=== PATIENT | female | born 1985 | race Caucasian/White ===

== ENCOUNTER 2017-05-08 11:51 | Emergency (ER) | payer SELFPAY ==
[~2017-05-08] VITALS: Ht 154.9 cm; Wt 69.9 kg
[~2017-05-08 11:51] MED LIST: DICLOFENAC SODI75 MG PO; LYRICA50 MG PO; NEURONTIN; TRAMADOL HCL50 MG PO; ULTRAM50 MG PO
[2017-05-08] MEDS ORDERED: PEN-VEE K,VEET500 MG PO (14:11)
[2017-05-08 14:21] VITALS: BP 131/66
== END 2017-05-08 14:22 | disposition home or self-care (01) ==
LOC: EME 11:51 → RME 11:51
DX: K04.7 Periapical abscess without sinus (principal); F17.200 Nicotine dependence, unspecified, uncomplicated
CPT/HCPCS: 99281; 99284

== ENCOUNTER → 2018-01-18 | Outpatient (CLI) | payer OTHER ==
[~2018-01-18] MED LIST changes: +FLEXERIL10 MG PO; +MOTRIN800 MG PO; +PEN-VEE K,VEET500 MG PO
== END | disposition home or self-care (01) ==
LOC: RAD 09:58
DX: E01.0 Iodine-deficiency related diffuse (endemic) goiter (principal)
CPT/HCPCS: 76536

== ENCOUNTER 2018-01-22 14:02 | Emergency (ER) | payer OTHER ==
[~2018-01-22] VITALS: Ht 154.9 cm; Wt 72.7 kg
[~2018-01-22 14:02] MED LIST changes: -FLEXERIL10 MG PO; -MOTRIN800 MG PO
[2018-01-22 14:13] VITALS: BP 138/77
[2018-01-22] MEDS ORDERED: FLEXERIL10 MG PO (14:43)
[2018-01-22] MEDS ORDERED: MOTRIN800 MG PO (14:43)
[2018-01-22] MEDS ORDERED: PEN-VEE K,VEET500 MG PO (14:43)
== END 2018-01-22 15:03 | disposition home or self-care (01) ==
LOC: EME 14:02
DX: K04.7 Periapical abscess without sinus (principal); K02.9 Dental caries, unspecified; F11.11 Opioid abuse, in remission; Z88.6 Allergy status to analgesic agent
CPT/HCPCS: 99281; 99284